=== PATIENT | female | born 1985 | race African-American/Black ===

== ENCOUNTER 2020-04-19 21:48 | Emergency (ER) | payer OTHER ==
[~2020-04-19] VITALS: Ht 175.3 cm; Wt 120.2 kg
[2020-04-19] MEDS ORDERED: TRAMADOL HCL 50 MG TAB PO ONE ×2 (22:15)
[2020-04-19] MEDS ORDERED: KETOROLAC TROMETHAMINE 60 MG/2 ML VIAL IM ONE ×2 (22:15)
--- NOTE | 2020-04-19 22:22 | Emergency Department Note ---
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 Any updates have been documented here. Past Medical History Recent Fever: No Clinical Suspicion of Infectio: No New/Unexplained Change in Ment: No Past Medical History: None Past Surgical History: None Social History Smoking Cessation: Current every day smoker Counseling Performed: Yes Alcohol Use: Social Any Illegal Drug Use: No Physically hurt or threatened: No Family History Family history of heart diseas: No Other Any Pre-Existing Lines (PICC,: No Review of Systems Review of Systems Constitutional: Reports no symptoms EENTM: Reports no symptoms Cardiovascular: Reports as per HPI Respiratory: Reports no symptoms Gastrointestinal: Reports no symptoms Genitourinary: Reports no symptoms Musculoskeletal: Reports no symptoms Integumentary: Reports no symptoms Neurological: Reports no symptoms Psychological: Reports no symptoms Endocrine: Reports no symptoms Hematological/Lymphatic: Reports no symptoms Physical Exam Related Data Allergies: Coded Allergies: No Known Allergies (Unverified , 04/19/20) Triage Vital Signs Vital Signs Date Time Temp Pulse Resp B/P (MAP) Pulse Ox O2 Delivery O2 Flow Rate FiO2 04/19/20 22:06 99.1 85 17 105/67 100 Room Air Vital signs reviewed: Yes Physical Exam CONSTITUTIONAL Constitutional: Present well-developed, Present well-nourished; Absent distressed HENT HENT: Present normocephalic, Present atraumatic, Present oropharynx clear/moist, Present nose normal HENT L/R: Present left ext ear normal, Present right ext ear normal EYES Eyes: Reports PERRL, Reports conjunctivae normal NECK Neck: Present ROM normal PULMONARY Pulmonary: Present effort normal, Present breath sounds normal, Present chest tenderness (MODERATE WITH PALPATION OF STERNUM) CARDIOVASCULAR Cardiovascular: Present regular rhythm, Present heart sounds normal, Present capillary refill normal, Present normal rate GASTROINTESTINAL Abdominal: Present soft, Present nontender, Present bowel sounds normal GENITOURINARY Genitourinary: Present exam deferred SKIN Skin: Present warm, Present dry MUSCULOSKELETAL Musculoskeletal: Present ROM normal NEUROLOGICAL Neurological: Present alert, Present oriented x 3, Present no gross motor or sensory deficits PSYCHOLOGICAL Psychological: Present mood/affect normal, Present judgement normal Results Imaging Imaging results reviewed: Yes Impressions Procedure: [id number] DX/CHEST 2 VIEWS Exam Date: 04/19/20 Exam Time: 2244 REPORT STATUS: Signed EXAMINATION: CHEST 2 VIEWS INDICATION: ^MID STERNAL PAIN ^[id number] ^[id number] COMPARISON: None FINDINGS: TUBES and LINES: None. LUNGS: Normal lung volumes. Lungs are clear. No consolidations. PLEURA: No pleural effusion or pneumothorax. HEART AND MEDIASTINUM: The cardiomediastinal silhouette is unremarkable. BONES AND SOFT TISSUES: No acute osseous lesion. Soft tissues are unremarkable. UPPER ABDOMEN: No free air under the diaphragm. IMPRESSION: No acute thoracic radiographic abnormality. Signed by: Oanh Mueller DO on 04/19/2020 11:26 PM Dictated By: OANH MUELLER DO 25 Transcribed By: TRIXIE on 04/19/202325 COPY TO: GUERO GUERRERO MD~ Procedures 12 Lead ECG Interpretation ECG Interpretation : ECG: ECG 1 [employer]: Interpreted by ED physician Date: Apr 19, 2020 Time: 22:06 Rhythm: sinus rhythm Rate: normal BPM: 85 QRS axis: normal ST segments normal: Yes T waves normal: No (NONSPECIFIC CHANGES) T waves flattening: V4, V5, V6 Clinical Impression: normal ECG Assessment & Plan Medical Decision Making MDM PT WITH CHEST WALL PAIN EKG, CXR ORDERED TO EVAL FOR MYOCARDIAL INFARCTION, PNEUMONIA, PNEUMOTHORAX TORADOL 60 MG IM ORDERED TRAMADOL 50 MG PO ORDERED Reassessment Reassessment time: 23:30 Reassessment pt;s pain much improved after toradol injection Assessment & Plan Final Impression: (1) Costochondritis Depart Disposition: HOME, SELF-CARE Last Vital Signs Date Time Temp Pulse Resp B/P (MAP) Pulse Ox O2 Delivery O2 Flow Rate FiO2 04/19/20 22:06 99.1 85 17 105/67 100 Room Air Medications in the ED Ketorolac Tromethamine 60 mg ONCE ONCE IM ; Start 04/19/20 at 22:15; Stop 04/19/20 at 22:16; Status UNV Tramadol HCl 50 mg ONCE ONCE PO ; Start 04/19/20 at 22:15; Stop 04/19/20 at 22:16; Status UNV Ketorolac Tromethamine 60 mg ONCE ONCE IM ; Start 04/19/20 at 22:15; Stop 04/19/20 at 22:16; Status UNV Tramadol HCl 50 mg ONCE ONCE PO ; Start 04/19/20 at 22:15; Stop 04/19/20 at 22:16; Status UNV GUERO GUERRERO MD Apr 19, 2020 22:22
[2020-04-19] MEDS ORDERED: KETOROLAC TROMETHAMINE 60 MG/2 ML VIAL ONE (22:24)
[2020-04-19] MEDS ORDERED: TRAMADOL HCL 50 MG TAB ONE (22:24)
--- NOTE | 2020-04-19 23:30 | Diagnostic Imaging Report ---
EXAMINATION: CHEST 2 VIEWS INDICATION: ^MID STERNAL PAIN ^[id number] ^[id number] COMPARISON: None FINDINGS: TUBES and LINES: None. LUNGS: Normal lung volumes. Lungs are clear. No consolidations. PLEURA: No pleural effusion or pneumothorax. HEART AND MEDIASTINUM: The cardiomediastinal silhouette is unremarkable. BONES AND SOFT TISSUES: No acute osseous lesion. Soft tissues are unremarkable. UPPER ABDOMEN: No free air under the diaphragm. IMPRESSION: No acute thoracic radiographic abnormality. Signed by: Eladio Mueller DO on 04/19/2020 11:26 PM
--- OUTSIDE RECORDS SUMMARY | 2020-04-20 00:10 | XMS REPORT | Continuity of Care Document ---
Author Author Ronald Peraltaann Alexander ALEAHBERTHA Wong [employer] Address Unknown Phone Unavailable Care Team Providers Care Compensation And Benefits Administrator Name Role Phone [employer] Exchange Unavailable Un available Problems Problem Status Onset Date Classification Date Reported Comments Source Bacterial vaginosis (disorder) Active 11/11/2014 Problem 05/05/2017 Data migrated from [facility] Laceration of finger (disorder) Active 11/11/2014 Problem 05/05/2017 Data migrated from [facility] Gastroenteritis (disorder) Act radha 10/15/2014 Problem 05/05/2017 Data migrated from [employer] (finding) Resolved Problem 05/05/2017 [facility] Depressive disorder (disorder) Active Problem 06/2016 [facility] Obesity (disorder) Active Problem 05/05/2017 [facility] Medications No Data Provided for This Section Allergies, Adverse Reactions, Alerts No Known Medication Allergies Immunizations No Data Provided for This Section Results No Data Provided for This Section Pathology Reports No Data Provided for This Section Diagnostic Reports No Data Provided for This Section Consultation Notes No Data Provided for This Section Discharge Summaries No Data Provided for This Section History and Physicals No Data Provided for This Section Vital Signs No Data Provided for This Section Encounters Location Location Details Encounter Type Encounter Number Reason For Visit Attending Provider ADM Date DC Date Status Source Outpatient [id number] ZOE NUNN 07/31/2015 Active [facility] Outpatient [id number] [facility] 10/05/2015 Active [facility] Outpatient [id number] [facility] 04/22/2016 [facility] [id number] ZOE NUNN 09/14/2016 Active [facility] Outpatient [id number] [facility] 04/24/2017 [facility] [id number] 04/24/2017 04/24/2017 [facility] Outpatient [id number] COURTNEY RUTHERFORD 05/02/2017 Active [facility] [id number] Courtney Rutherford 05/02/2017 05/02/2017 [facility] Procedures No Data Provided for This Section Assessment and Plan No Data Provided for This Section Plan of Care No Data Provided for This Section Social History Social History Date Source Social History TypeResponse Substance Abuse Use: None. Employment/School Status: Employed. Work/School description: [employer]. Activity level: Occasional physical work. Alcohol Current, Type Liquor. Frequency: Daily. Smoking Status Current every day smoker; Type: Cigarettes; Exposure to Tobacco Smoke None; Cigarette Smoking Last 365 Days Yes; Reg Smoking Cessation Counseling Yes; Tobacco use per day: 2; Started at age: 13.0; 04/22/2016 [facility] Family History No Data Provided for This Section Advance Directives No Data Provided for This Section Functional Status No Data Provided for This Section
--- OUTSIDE RECORDS SUMMARY | 2020-04-20 00:10 | XMS REPORT | Continuity of Care Document ---
Author Author [facility] t Organization [facility] Address [address] [place] [address] Phone Unavailable Care Team Providers Care Sales Rep Name Role Phone Miriam GUERERRO Attphys Unavailable Gali Acosta Attphys Problems Condition Name Condition Details Condition Category Status Onset Date Resolution Date Last Treatment Date Treating Clinician Comments Source Bacterial vaginosis (disorder) Bacterial vaginosis (disorder) Active 11/11/2014 Problem 05/05/2017 Data migrated from [employer] on 12/10/14. [facility] Problem Active 2014-11-11 00:00:00 2017-05-05 02:06:03 Ronald Pennington Laceration of finger (disorder) Laceration of finger (disorder) Active 11/11/2014 Problem 05/05/2017 Data migrated from [facility] on 12/10/14. [facility] Problem Active 2014-11-11 00:00:00 2017-05-05 02:06:03 Ronald Pennington Gastroenteritis (disorder) Gas troenteritis (disorder) Active 10/15/2014 Problem 05/05/2017 Data migrated from [facility] on 12/10/14. [facility] Problem Active 2014-10-15 00:00:00 2017-05-05 02:06:0 3 Ronald Pennington (finding) Srikanth h (finding) Resolved Problem 05/05/2017 [facility] Problem Resolved 2017-05-05 02:06:03 Ronald Pennington Depressive disorder (disorder) Depressive disorder (disorder) Active Problem 05/05/2017 [facility] Problem Active 2017-05-05 02:06:03 Ronald Pennington Obesity (disorder) Obes ity (disorder) Active Problem 05/05/2017 [facility] Problem Active 2017-05-05 02:06:03 Ronald Pennington Allergies, Adverse Reactions, Alerts This patient has no known allergies or adverse reactions. Social History Social Habit Start Date Stop Date Quantity Comments Source Social History 2016-04-22 15:37:36 2016-04-22 15:37:36 [facility] Medications This patient has no known medications. Procedures This patient has no known procedures. Encounters Start Date/Time End Date/Time Encounter Type Admission Type [facility] Care Department Encounter ID Source 2017-05-02 09:30:00 2017-05-02 09:30:00 Outpatient Rudy Acosta [facility] [id number] 2017-04-24 10:30:00 2017-04-24 10:30:00 Outpatient [facility] [id number] Results Test Description Test Time Test Comments Results Result Comments Source CHEST 2 VIEWS 2020-04-19 23:26:00 [facility]ENTER[facility]: ALEAH KHOURY : 1985 Sex: F [facility] [address] [place] [address] Patient Name: ALEAH KHOURY MR #: [id number] : 1985 Age/Sex: 34/F Req #: [id number] [facility] Physician: Ordered by: GUERO GUERRERO MD Report #: [id number] Location: ER Room/Bed: Procedure: [id number] DX/CHEST 2 VIEWS Exam Date: 04/19/20 Exam Time: 2244 REPORT STATUS: Signed EXAMINATION: CHEST 2 VIEWS INDICATION: MID STERNAL PAIN [id number] COMPARISON: None FINDINGS: TUBES and LINES: None. LUNGS: Normal lung volumes. Lungs are clear. No consolidations. PLEURA: No pleural effusion or pneumothorax. HEART AND MEDIASTINUM: The cardiomediastinal silhouette is unremarkable. BONES AND SOFT TISSUES: No acute osseous lesion. Soft tissues are unremarkable. UPPER ABDOMEN: No free air under the diaphragm. IMPRESSION: No acute thoracic radiographic abnormality. Signed by: Eladio Mueller DO on 04/19/2020 11:26 PM Dictated By: ELADIO MUELLER DO 25 Transcribed By: TRIXIE on 04/19/202325 COPY TO: GUERO GUERRERO MD
== END 2020-04-19 22:30 | disposition home or self-care (01) ==
LOC: ER 22:15
DX: M94.0 Chondrocostal junction syndrome [Tietze] (principal); X50.0XXA Overexertion from strenuous movement or load, initial encounter; Y99.0 Civilian activity done for income or pay; R94.31 Abnormal electrocardiogram [ECG] [EKG]; F17.210 Nicotine dependence, cigarettes, uncomplicated
CPT/HCPCS: 71046; 93005; 99283; J1885